=== PATIENT | male | born 1955 | race Caucasian/White ===

== ENCOUNTER → 2016-12-23 | Outpatient (CLI) | payer OTHER ==
[~2016-12-23] MED LIST: ASCA500 PO; ATEN50TA8 PO; CIPR-255 PO; MULT-506 PO; PRLSR20 PO
== END | disposition home or self-care (01) ==
LOC: C.LAB 21:24
DX: Z02.83 Encounter for blood-alcohol and blood-drug test (principal)

== ENCOUNTER → 2017-01-08 | Outpatient (CLI) | payer OTHER ==
[2017-01-08 12:19] LABS: BASO % 0.8 %; BASO ABS # 0.05 K/uL (0-0.2); COMPLETE YES; EOS % 2.7 %; HEMATOCRIT 42.5 % (42-52); IG% 0.2 %; LYMPH % 41.5 %; MEAN CORPUSCULAR HEMOGLOBIN 32.2 pg (25-34); MEAN CORPUSCULAR HGB CONC 32.2 g/dl (32-36); MEAN PLATELET VOLUME 11.1 fL (7.4-10.4); MONO % 10.6 %; NEUT % 44.2 %; PLATELET COUNT 259 K/uL (130-400); RED BLOOD COUNT 4.25 M/uL (4.7-6.1); WHITE BLOOD COUNT 6.02 K/uL (4.8-10.8)
[2017-01-08 12:26] LABS: ALT/SGPT 51 U/L (12-78); BLOOD UREA NITROGEN 15 mg/dl (7-18); BUN/CREATININE RATIO 13.2 (10-20); CALCIUM 9.1 mg/dl (8.5-10.1); CARBON DIOXIDE 28 mmol/L (21-32); CHLORIDE 103 mmol/L (98-107); CHOLESTEROL 199 mg/dl (0-200); GLUCOSE 85 mg/dl (70-99); POTASSIUM 5.2 mmol/L (3.5-5.1); SODIUM 136 mmol/L (136-145)
[2017-01-08 12:36] LABS: ALB/GLOB RATIO 1.3 (0.9-2); ALKALINE PHOSPHATASE 65 U/L (45-117); AST/SGOT 46 U/L (15-37); CHOLESTEROL/HDL RATIO 2.4; HDL CHOLESTEROL 82 mg/dl; LDL CHOLESTEROL CALCULATED 106 mg/dl; PROSTATE SPECIFIC ANTIGEN 0.661 ng/ml (0.000-4.000); TRIGLYCERIDES 57 mg/dl (0-150); VERY LOW DENSITY LIPOPROT CALC 11 mg/dl
[2017-01-08 12:47] LABS: URINE APPEARANCE CLEAR (CLEAR); URINE BILIRUBIN NEG (NEG); URINE COLOR YELLOW; URINE EPITHELIAL CELL AUTO 0-5 /lpf (0-5); URINE NITRITE NEG (NEG); URINE SPECIFIC GRAVITY 1.009 (1.000-1.030); UROBILINOGEN NEG (NEG); ZZUR CULT IF INDIC CLEAN CATCH NO
[2017-01-08 13:04] LABS: MANUAL MICROSCOPIC REQUIRED? NO; REVIEW REQ? NO
== END | disposition home or self-care (01) ==
LOC: C.LABBFT 09:19
PROVIDERS: ATTEND Internal Medicine
DX: I10 Essential (primary) hypertension (principal); Z12.5 Encounter for screening for malignant neoplasm of prostate; E78.5 Hyperlipidemia, unspecified

== ENCOUNTER → 2017-01-14 | Outpatient (CLI) | payer OTHER ==
--- NOTE | 2017-01-14 07:18 | DIAGNOSTIC IMAGING REPORT ---
RIGHT INGUINAL ULTRASOUND CLINICAL HISTORY: Right inguinal hernia. COMPARISON STUDY: CT of the abdomen and pelvis June 14, 2013. FINDINGS: Note is made of a large fat-containing nonreducible right inguinal hernia. An echogenic focus with associated shadowing suggest a previous hernia repair with mesh. IMPRESSION: Large fat containing nonreducible right inguinal hernia. Electronically signed by: Eliel Llanos M.D. 01/14/2017 7:16 AM Dictated Date/Time: 01/14/2017 7:13 AM
== END | disposition home or self-care (01) ==
LOC: C.ULTR 06:14
PROVIDERS: ATTEND Internal Medicine
DX: K40.30 Unilateral inguinal hernia, with obstruction, without gangrene, not specified as recurrent (principal)